=== PATIENT | female | born 1955 | race Caucasian/White ===

== ENCOUNTER 2020-12-26 09:25 | Outpatient (CLI) | payer OTHER | END 2020-12-26 09:30 | disposition home or self-care (01) | LOC: RAD 09:25 | PROVIDERS: ATTEND Internal Medicine | DX: R55 Syncope and collapse (principal); R06.02 Shortness of breath ==

== ENCOUNTER 2020-12-26 09:32 | Outpatient (CLI) | payer OTHER | END 2020-12-26 09:34 | disposition home or self-care (01) | LOC: NUCLEAR 09:32 | PROVIDERS: ATTEND Internal Medicine | DX: R55 Syncope and collapse (principal); R06.02 Shortness of breath ==